=== PATIENT | male | born 2000 | race African-American/Black ===

== ENCOUNTER 2024-03-30 19:52 | Emergency (ER) | payer OTHER ==
[2024-03-30 20:02] VITALS: BP 128/53; PULSE 81; RESP 18; TEMP 98.1; BMI 33.9
[2024-03-30] MEDS ORDERED: ACETAMINOPHEN 325 MG TABLET (FP) ONE (20:46)
[2024-03-30] MEDS ORDERED: KETOROLAC TROMETHAMINE 15 MG/ML VIAL ONE (20:46)
[2024-03-30 20:49] LABS: BASO % 0.3 % (0-2.0); EOS % 4.4 % (0-4.5); HEMATOCRIT 46.8 % (35.4-49); HEMOGLOBIN 15.5 GM/dL (11.7-16.9); LYMPH % 23.9 % (8-40); MCHC 33.2 g/dl (32.0-35.9); MEAN CELL VOLUME 81.4 fl (80-96); MEAN PLT VOLUME 7.8 fl (7.5-11.1); MONO % 6.3 % (3.8-10.2); NEUT % 65.1 % (42.8-82.8); PLATELET COUNT 291 10^3/uL (134-434); RBC 5.75 M/mm3 (4.00-5.60); RDW 13.9 % (11.9-15.9); WHITE BLOOD COUNT 6.5 K/mm3 (4.0-10.0)
[2024-03-30] MEDS: KETOROLAC TROMETHAMINE 15 MG/ML VIAL IVPUSH ONE (20:56)
[2024-03-30] MEDS: ACETAMINOPHEN 500 MG TABLET (FP) PO ONE (20:56)
[2024-03-30 20:57] LABS: INR 1.06 (0.83-1.09); PROTHROMBIN TIME (PATIENT) 11.6 SEC (9.7-13.0)
[2024-03-30] MEDS: IBUPROFEN 400 MG TABLET (FP) PO ONE (20:57)
[2024-03-30] MEDS: LACTATED RINGERS SOLUTION 1000 ML INFUS.BAG IV ONE (20:57)
[2024-03-30 21:00] LABS: ACTIVATED PTT 30.7 SECONDS (25.2-36.5)
[2024-03-30 21:21] LABS: CHLORIDE 106 mmol/L (98-107); POTASSIUM 4.1 mmol/L (3.5-5.1); SODIUM 140 mmol/L (136-145)
[2024-03-30 21:24] LABS: ALBUMIN 3.9 g/dl (3.4-5.0); ANION GAP 7 mmol/L (4-13); BLOOD UREA NITROGEN 9.9 mg/dL (7-18); CO2 27 mmol/L (21-32); GLUCOSE,RANDOM 128 mg/dL (74-106)
[2024-03-30 21:27] LABS: SGOT/AST 20 U/L (15-37); SGPT/ALT 38 U/L (13-61)
[2024-03-30 21:29] LABS: BILIRUBIN,TOTAL 0.2 mg/dL (0.2-1); TOT PROT 7.7 g/dl (6.4-8.2)
[2024-03-30 21:30] LABS: ALK PHOS 71 U/L (45-117)
== END 2024-03-30 22:34 | disposition home or self-care (01) ==
LOC: JER 19:52
PROC: 3E0333Z Introduction of Anti-inflammatory into Peripheral Vein, Percutaneous Approach (ICD-10-PCS; principal; 2024-03-30)
DX: S86.912A Strain of unspecified muscle(s) and tendon(s) at lower leg level, left leg, initial encounter (principal); W01.198A Fall on same level from slipping, tripping and stumbling with subsequent striking against other object, initial encounter
CPT/HCPCS: 36415; 73562-TC-LT-FY; 80053; 82550; 82553; 85025; 85610; 85730; 93971-TC; 99285-25